=== PATIENT | male | born 2000 | race Caucasian/White ===

== ENCOUNTER 2023-10-29 22:53 | Inpatient (IN) | payer MEDICAID ==
[2023-10-30] MEDS: ZOLPIDEM TARTRATE 10 MG TABLET PO PRN (01:40)
[2023-10-30 01:55] VITALS: BP 132/86; PULSE 96; RESP 18; TEMP 98.4; O2SAT 100
[2023-10-30 07:59] LABS: BASOPHILS % (AUTO) 0.7 % (0.0-2.0); EOSINOPHILS % (AUTO) 1.6 % (1.0-6.0); HEMATOCRIT 47.1 % (41-53); LYMPHOCYTES # (AUTO) 1.6 K/uL (1.0-4.8); LYMPHOCYTES % (AUTO) 18.8 % (22.0-44.0); MEAN CORPUSCULAR HEMOGLOBIN 30.6 pg (26.0-34.0); MEAN CORPUSCULAR VOLUME 90 fL (80-100); MONOCYTES # (AUTO) 0.8 K/uL (0.1-1.0); MONOCYTES % (AUTO) 9.2 % (2.0-9.0); NEUTROPHILS # (AUTO) 5.9 K/uL (1.8-7.7); NEUTROPHILS % (AUTO) 69.7 % (40.0-70.0); PLATELET COUNT (AUTO) 270 K/uL (150-450); RED BLOOD CELL COUNT(AUTO) 5.24 MIL/uL (4.50-5.90); RED CELL DISTRIBUTION WIDTH 14.2 % (11.5-14.5); WHITE BLOOD COUNT (AUTO) 8.5 K/uL (4.5-11.0)
[2023-10-30 08:31] LABS: ALANINE AMINOTRANSFERASE 23 U/L (12-78); ALBUMIN 3.7 g/dL (3.4-5.0); ALKALINE PHOSPHATASE 99 U/L (46-116); ANION GAP 11 mmol/L (8-16); ASPARTATE AMINOTRANSFERASE 20 U/L (15-37); BILIRUBIN,TOTAL 0.7 mg/dL (0.1-1.0); CALCIUM, TOTAL 8.9 mg/dL (8.8-10.5); CARBON DIOXIDE 26 mmol/L (22-29); CHLORIDE 102 mmol/L (98-107); CHOL/HDL RATIO 2.6 (4.2-7.3); CHOLESTEROL 145 mg/dL (131-200); CREATININE 0.98 mg/dL (0.60-1.30); FREE T4 (FREE THYROXINE) 1.04 ng/dL (0.76-1.46); GLOMERULAR FILTR. RATE CALC > 60 mL/min (>60); GLUCOSE,RANDOM 90 mg/dL (70-110); HDL CHOLESTEROL 56 mg/dL (40-60); LDL CHOL (CALC.) 74 mg/dL (0-130); POTASSIUM 4.3 mmol/L (3.5-5.1); SODIUM SERUM 139 mmol/L (136-145); THYROID STIMULATING HORMONE 0.72 uIU/mL (0.36-3.74); TOTAL PROTEIN, SERUM 7.7 g/dL (6.4-8.2); TRIGLYCERIDES 73 mg/dL (15-150); UREA NITROGEN, BLOOD 15 mg/dL (7-18)
[2023-10-30 08:33] LABS: CARBAMAZEPINE (TEGRETOL) 0.2 mcg/mL (4.0-12.0)
[2023-10-30] MEDS: LORazepam 2 MG TABLET PO PRN (08:36)
[2023-10-30] MEDS: HALOPERIDOL 5 MG TABLET PO PRN (08:36)
[2023-10-30 09:43] VITALS: BP 133/70; PULSE 61; RESP 18; TEMP 97.7; O2SAT 95
[2023-10-30] MEDS: DULoxetine HCL 30 MG CAPSULE PO SCH (10:56)
[2023-10-30] MEDS ORDERED: LOPERAMIDE HCL 2 MG CAPSULE PO PRN (11:15)
[2023-10-30] MEDS ORDERED: CloNIDine HCL 0.1 MG TABLET PO PRN (11:15)
[2023-10-30] MEDS ORDERED: ACETAMINOPHEN 325 MG TABLET PO PRN (11:15)
[2023-10-30] MEDS ORDERED: DOCUSATE SODIUM 100 MG CAPSULE PO PRN (11:15)
[2023-10-30] MEDS ORDERED: MAGNESIUM HYDROXIDE SUSPENSION 30 ML UDCUP PO PRN (11:15)
[2023-10-30] MEDS ORDERED: MAG HYDROX/ALUMINUM HYD/SIMETH ES 30 ML SUSPENSION UDCUP PO PRN (11:15)
[2023-10-30] MEDS ORDERED: GuaiFENesin/D-METHORPHAN [SUGAR-FREE] 200-20MG/10 ML SYRUP UDCUP PO PRN (11:15)
[2023-10-30] MEDS ORDERED: PETROLATUM,WHITE 28 GM JELLY TP PRN (11:15)
[2023-10-30] MEDS ORDERED: IBUPROFEN 400 MG TABLET PO PRN (11:15)
[2023-10-30] MEDS ORDERED: ALBUTEROL SULFATE HFA 90 MCG/PUFF 8 GM INHALER IH PRN (11:15)
[2023-10-30] MEDS ORDERED: ONDANSETRON HCL 4 MG TABLET PO PRN (11:15)
[2023-10-30 20:30] VITALS: BP 124/68; PULSE 68; TEMP 98.4; O2SAT 99
[2023-10-31] MEDS: NICOTINE 14 MG/24 HOUR PATCH TD PRN (08:08)
[2023-10-31 08:10] LABS: HEMOGLOBIN A1C 5.2 % (3.8-5.6)
[2023-10-31 08:27] LABS: THYROID STIMULATING HORMONE 0.99 uIU/mL (0.36-3.74)
[2023-10-31 08:36] VITALS: BP 112/75; PULSE 89; RESP 17; TEMP 98.7; O2SAT 98
[2023-10-31 20:31] VITALS: BP 113/75; PULSE 70; TEMP 98.2; O2SAT 98
[2023-11-01 08:24] VITALS: BP 118/77; PULSE 82; RESP 17; TEMP 97; O2SAT 98
[2023-11-01] MEDS ORDERED: DULO-114 PO (09:26)
== END 2023-11-01 11:34 | disposition home or self-care (01) | DRG 751 ==
LOC: B3A 23:56
PROVIDERS: ADMIT Psychiatry & Neurology Child & Adolescent Psychiatry; ATTEND Psychiatry & Neurology Child & Adolescent Psychiatry
DX: F33.2 Major depressive disorder, recurrent severe without psychotic features (principal); R45.851 Suicidal ideations
CPT/HCPCS: 80053; 80061; 80156; 83036; 84439; 84443; 85025